=== PATIENT | female | born 1990 | race African-American/Black ===

== ENCOUNTER 2018-03-20 09:47 | Emergency (ER) | payer OTHER ==
[~2018-03-20] VITALS: Ht 170.2 cm; Wt 117.9 kg
--- NOTE | ~2018-03-20 | EKG ---
[address] [employer] 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
[2018-03-20 11:06] LABS: ABSOLUTE NEUTROPHILS 4.5 thou/uL (1.4-8.2); BASOPHILS 0.6 % (0.0-2.0); EOSINOPHILS 0.9 % (0.0-3.0); HEMATOCRIT 40.4 % (37.0-47.0); HEMOGLOBIN 13.9 gm/dL (12.0-15.0); LYMPHOCYTES 32.3 % (24.0-44.0); MCH 31.4 pg (26.0-34.0); MCHC 34.3 g/dL (28.0-37.0); MCV 91.4 fL (80.0-100.0); MONOCYTES 5.5 % (1.0-8.0); PLATELET COUNT 253 thou/uL (150-400); POLYS 60.7 % (36.0-66.0); RBC 4.42 mil/uL (4.20-5.00); RDW 12.5 % (10.5-14.5); WBC 7.4 thou/uL (4.0-11.0)
[2018-03-20 11:17] LABS: ANION GAP 7 mmol/L (7-16); BUN 10 mg/dL (7-18); CALCIUM 8.6 mg/dL (8.5-10.1); CHLORIDE 107 mmol/L (98-107); CO2 26 mmol/L (21-32); CREATININE 0.9 mg/dL (0.6-1.0); GLUCOSE 110 mg/dL (74-106); POTASSIUM 3.5 mmol/L (3.5-5.1); SODIUM 140 mmol/L (136-145)
[2018-03-20 11:18] LABS: AMP/METHAMP Negative (Negative); BARBITURATES Negative (Negative); BENZODIAZEPINES Negative (Negative); COCAINE POSITIVE (Negative); METHADONE Negative (Negative); OPIATES Negative (Negative); PCP Negative (Negative)
[2018-03-20 11:28] LABS: DIRECT BILIRUBIN < 0.1 mg/dL (<0.1-0.3); SGOT 14 U/L (15-37); SGPT 21 U/L (30-65); TOTAL BILIRUBIN 0.3 mg/dL (<0.1-1.0); TOTAL PROTEIN 6.8 g/dL (6.4-8.2); TROPONIN-I <0.06 ng/mL (<0.06)
[2018-03-20 12:00] VITALS: BP 118/76
== END 2018-03-20 12:06 | disposition home or self-care (01) ==
LOC: ER 09:47
PROVIDERS: Physician Assistant
DX: J06.9 Acute upper respiratory infection, unspecified (principal); R00.2 Palpitations; F14.10 Cocaine abuse, uncomplicated; R51 Headache; Z98.890 Other specified postprocedural states

== ENCOUNTER 2018-04-12 13:53 | Emergency (ER) | payer OTHER ==
[~2018-04-12] VITALS: Ht 170.2 cm; Wt 121.6 kg
[2018-04-12 14:05] VITALS: BP 119/75
[2018-04-12] MEDS ORDERED: PREDNISONE 20 M20 MG PO (14:41)
== END 2018-04-12 14:59 | disposition home or self-care (01) ==
LOC: ER 13:53
DX: J20.8 Acute bronchitis due to other specified organisms (principal); B97.89 Other viral agents as the cause of diseases classified elsewhere; Z71.6 Tobacco abuse counseling; Z87.891 Personal history of nicotine dependence; Z98.84 Bariatric surgery status; Z98.890 Other specified postprocedural states

== ENCOUNTER 2018-09-18 20:47 | Emergency (ER) | payer OTHER ==
[~2018-09-18] VITALS: Ht 170.2 cm; Wt 117.9 kg
[~2018-09-18 20:47] MED LIST: PREDNISONE 20 M20 MG PO
[2018-09-18] MEDS ORDERED: PRENATAL (21:14)
[2018-09-18 22:45] VITALS: BP 108/54
== END 2018-09-18 22:46 | disposition home or self-care (01) ==
LOC: ER 20:47
DX: O9A.213 Injury, poisoning and certain other consequences of external causes complicating pregnancy, third trimester (principal); S01.21XA Laceration without foreign body of nose, initial encounter; Z3A.28 28 weeks gestation of pregnancy; Z87.891 Personal history of nicotine dependence; Y04.0XXA Assault by unarmed brawl or fight, initial encounter; Y93.89 Activity, other specified; Y92.89 Other specified places as the place of occurrence of the external cause; Y99.8 Other external cause status